=== PATIENT | female | born 1990 | race African-American/Black ===

== ENCOUNTER 2016-10-26 08:42 | Emergency (ER) | payer MEDICAID ==
[~2016-10-26] VITALS: Ht 160 cm; Wt 65.0 kg
[~2016-10-26 08:42] MED LIST: IBUP-232 PO; LABE300T PO; MACR100C PO; METO10TA PO; PREN0.01 PO
[2016-10-26 08:44] VITALS: BP 124/80; PULSE 112; RESP 16; TEMP 97.6; O2SAT 100
[2016-10-26 09:35] LABS: BACTERIA, URINE RARE /hpf; BLOOD, URINE NEG (NEG); COMMENT (UR) CULTURE INDICATED; CULTURE IF INDICATED CULTURE INDICATED; GLUCOSE,URINE NEG (NEG); KETONE, URINE NEG (NEG); MUCUS URINE FEW /lpf (OCC); NITRITE,URINE NEG (NEG); PH, URINE 5.5 (5.0-8.5); SQUAMOUS EPITHELIAL CELL URINE 6 /hpf (0-5); URINE COLOR YELLOW (YELLW/STRAW)
[2016-10-26 10:17] LABS: BETA HCG QUANT 36 MIU/ML (0-5)
[2016-10-26] MEDS ORDERED: MACR100C2 PO (10:46)
--- NOTE | 2016-10-26 10:47 | PD ---
HPI Chief Complaint: Related Problem Time Seen by Provider: 09:09 Travel History International Travel<30 days: No Contact w/Intl Traveler<30days: No Traveled to known affect area: No History of Present Illness HPI Patient is a 25-year-old at approximately 6 weeks' gestational the age based on LMP of 09/14/16 here with complaint of abdominal pain. Patient states that she believes she is though has not taken any home tests. She has had some pelvic pressure, pain and a scant amount of bloody/ pink tinged vaginal discharge. No bleeding, nothing having a poor she's had to use a pad or tampon. PFSH Past Medical History Asthma: Yes Developmental Delay: No Diminished Hearing: No Immunizations Current: Yes ?: LMP: august 2016 : 2 Para: 3 Past Surgical History Surgical History: No Previous Surgery Social History Alcohol Use: No Tobacco Use: Yes (1 cigarette a day ) Substance Use: No Allergies-Medications (Allergen,Severity, Reaction): Coded Allergies: No Known Allergies (Unverified , 10/26/16) Reported Meds & Prescriptions Reported Meds & Active Scripts Active Zofran Odt (Ondansetron Odt) 4 Mg Tab 4 Mg SL Q6HR PRN Macrobid (Nitrofurantoin Monohydrate Macrocrystals) 100 Mg Capsule 100 Mg PO BID 7 Days Labetalol (Labetalol HCl) 300 Mg Tab 300 Mg PO BID Ibuprofen 600 Mg Tab 600 Mg PO Q6H PRN Review of Systems Except as stated in HPI: all other systems reviewed are Neg Physical Exam Narrative GENERAL well-appearing female in no acute distress SKIN: Focused skin assessment warm/dry. HEAD: Normocephalic. EYES: No scleral icterus. No injection or drainage. ENT: Mucous membranes pink and moist. NECK: Supple CARDIOVASCULAR: Regular rate and rhythm. RESPIRATORY: No accessory muscle use. GASTROINTESTINAL: Abdomen soft, non-tender, nondistended. MUSCULOSKELETAL: Normal gait NEUROLOGICAL: Awake and alert. Normal speech. PSYCHIATRIC: Appropriate mood and affect; insight and judgment normal. Data Data Last Documented VS Vital Signs Date Time Temp Pulse Resp B/P Pulse Ox O2 Delivery O2 Flow Rate FiO2 10/26/16 08:44 97.6 112 16 124/80 100 Room Air Orders Ed Urine Pregnancytest Poc (10/26/16 08:56) Urinalysis - C+S If Indicated (10/26/16 08:56) Ed Poc Ultrasound (10/26/16 ) Beta Hcg (Quant/Titer) (10/26/16 09:18) Urine Culture (10/26/16 09:01) Ondansetron Odt (Zofran Odt) (10/26/16 11:00) Us Pelvis (Ques Pr/Ect)W Trans (10/26/16 ) Labs Laboratory Tests Test 10/26/16 10/26/16 09:01 09:25 Urine Color YELLOW Urine Turbidity HAZY Urine pH 5.5 Urine Specific [place] 1.016 Urine Protein NEG mg/dL Urine Glucose (UA) NEG mg/dL Urine Ketones NEG mg/dL Urine Occult Blood NEG Urine Nitrite NEG Urine Bilirubin NEG Urine Urobilinogen LESS THAN 2.0 MG/DL Urine Leukocyte Esterase LARGE Urine RBC 7 /hpf Urine WBC 40 /hpf Urine Squamous Epithelial 6 /hpf Cells Urine Bacteria RARE /hpf Urine Mucus FEW /lpf Microscopic Urinalysis Comment CULTURE INDICATED Human Chorionic Gonadotropin, 36 MIU/ML Quant MDM Medical Decision Making Medical Screen Exam Complete: Yes Emergency Medical Condition: Yes Medical Record Reviewed: Yes Differential Diagnosis 25-year-old at approximately 6 weeks' gestational age based on LMP here with complaint of pelvic pressure and bloody tinged spotting when wiping on toilet paper. Differential includes , ectopic , threatened AB , missed AB, and appropriate, UTI. Narrative Course And test was positive. Urinalysis notable for possible UTI. Bedside ultrasound unable to identify IUP. Beta Quant 36. Patient is O+. Formal transvaginal ultrasound showed abnormal uterus, early versus retained products. Will have patient follow-up in 48 hours for repeat beta Quant. Procedures Procedure Narrative Emergency Department Pelvic ultrasound was performed with patient consent. 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 Follow-up with HELPER COORDINATOR in 48 hours for repeat beta Quant. Med/Other Pt SpecificInfo: Prescription(s) given Scripts Ondansetron Odt (Zofran Odt)4 Mg Tab4 Mg SL Q6HR PRN (Nausea/Vomiting) #10 TAB Ref 0 Prov:Kathleen Mayer MD 10/26/16 Nitrofurantoin Monohydrate Macrocrystals (Macrobid)100 Mg [id number] Mg PO BID 7 Days Ref 0 Prov:Kathleen Mayer MD 10/26/16 Disposition: 01 DISCHARGE HOME Condition: Stable Kathleen Mayer MD Oct 26, 2016 10:47
[2016-10-26] MEDS ORDERED: ZOFR4TAB3 SL (10:56)
[2016-10-26] MEDS ORDERED: ONDANSETRON ODT 4 MG TAB PO ONE (11:00)
--- NOTE | 2016-10-26 11:35 | RADRPT ---
EXAM DATE/TIME: 10/26/2016 10:20 [facility] COMPARISON: No previous studies available for comparison. INDICATIONS : Pelvic pain. LAB(S): Beta-hC MEDICAL HISTORY : . Asthma. Tobacco use. SURGICAL HISTORY : None. ENCOUNTER: Subsequent ACUITY: 1 week PAIN SCORE: 7/10 LOCATION: Bilateral pelvis MEASUREMENTS: UTERUS: 10.6 x 6.0 x 5.2 cm ENDOMETRIAL STRIPE: 14 mm RIGHT OVARY: 3.0 x 2.7 x 1.8 cm LEFT OVARY: 2.1 x 1.6 x 1.7 cm FREE FLUID: Yes posterior cul de sac CROWN RUMP LENGTH: Nonvisualized = WKS DAYS FHR: Nonvisualized BPM FINDINGS: UTERUS: Very small anechoic structure within the uterus. This could be very early gestation or retained prod ucts. RIGHT OVARY: Ovary contains no mass or significant cystic lesion. LEFT OVARY: Ovary contains no mass or significant cystic lesion. MISCELLANEOUS: Trace free fluid is present. CONCLUSION: Abnormal uterus as described above. Considerations include very early , unusual with beta o f 36 and retained products in the appropriate clinical situation. Dino Peña MD FACR on October 26, 2016 at 11:27 Board Certified Radiologist. This report was verified electronically.
== END 2016-10-26 12:07 | disposition home or self-care (01) ==
LOC: NEPD 08:42
DX: O20.0 Threatened abortion (principal); O23.41 Unspecified infection of urinary tract in pregnancy, first trimester; J45.909 Unspecified asthma, uncomplicated
CPT/HCPCS: 76700; 76817; 81001; 84702; 84703; 87086; 99285

== ENCOUNTER 2016-10-28 13:08 | Emergency (ER) | payer MEDICAID ==
[~2016-10-28] VITALS: Ht 160 cm; Wt 63.5 kg
[~2016-10-28 13:08] MED LIST changes: -MACR100C PO; +MACR100C2 PO; -METO10TA PO; -PREN0.01 PO; +ZOFR4TAB3 SL
[2016-10-28 14:24] LABS: BETA HCG QUANT 127 MIU/ML (0-5)
--- NOTE | 2016-10-28 14:30 | PD ---
HPI Chief Complaint: Related Problem Time Seen by Provider: 13:33 Travel History International Travel<30 days: No Contact w/Intl Traveler<30days: No Traveled to known affect area: No History of Present Illness HPI 25-year-old female is here for recheck. Patient was seen in emergency room 2 days ago with pelvic cramping and vaginal spotting. Beta hCG was 36. Pelvic ultrasound showed possible early versus retained products. Patient was advised to return in 2 days for recheck. Patient states that she has mild occasionally pelvic cramping. Patient states that she has not noted any spotting vaginally. Patient denies any fever chills. Patient's blood type O+. PFSH Past Medical History Asthma: Yes Developmental Delay: No Diminished Hearing: No Immunizations Current: Yes ?: LMP: 08/2016 : 2 Para: 3 Social History Alcohol Use: No Tobacco Use: Yes (1 cigarette a day ) Substance Use: No Allergies-Medications (Allergen,Severity, Reaction): Coded Allergies: No Known Allergies (Unverified , 10/28/16) Reported Meds & Prescriptions Reported Meds & Active Scripts Active Zofran Odt (Ondansetron Odt) 4 Mg Tab 4 Mg SL Q6HR PRN Macrobid (Nitrofurantoin Monohydrate Macrocrystals) 100 Mg Capsule 100 Mg PO BID 7 Days Labetalol (Labetalol HCl) 300 Mg Tab 300 Mg PO BID Ibuprofen 600 Mg Tab 600 Mg PO Q6H PRN Review of Systems General / Constitutional: No: Fever Eyes: No: Visual changes HENT: No: Headaches Cardiovascular: No: Chest Pain or Discomfort Respiratory: No: Shortness of Breath Gastrointestinal: No: Abdominal Pain Genitourinary: Positive: Pelvic Pain, No: Dysuria Musculoskeletal: No: Pain Skin: No Rash Neurologic: No: Weakness Psychiatric: No: Depression Endocrine: No: Polydipsia Hematologic/Lymphatic: No: Easy Bruising Physical Exam Narrative GENERAL: Well-nourished, well-developed patient. SKIN: Focused skin assessment warm/dry. HEAD: Normocephalic. EYES: No scleral icterus. No injection or drainage. NECK: Supple, trachea midline. No JVD or lymphadenopathy. CARDIOVASCULAR: Regular rate and rhythm without murmurs, gallops, or rubs. RESPIRATORY: Breath sounds equal bilaterally. No accessory muscle use. GASTROINTESTINAL: Abdomen soft, non-tender, nondistended. MUSCULOSKELETAL: No cyanosis, or edema. BACK: Nontender without obvious deformity. No CVA tenderness. Data Data Orders Beta Hcg (Quant/Titer) (10/28/16 13:39) Labs Laboratory Tests Test 10/28/16 13:50 Human Chorionic Gonadotropin, 127 MIU/ML Quant MDM Medical Decision Making Medical Screen Exam Complete: Yes Emergency Medical Condition: Yes Interpretation(s) 1430 p.m. Beta-hCG 127. Differential Diagnosis Differential diagnosis including right knee B, incomplete AB, completed AB, ectopic . Narrative Course The 25-year-old female returning to ED for repeat beta hCG titer. Diagnosis Primary Impression: Vaginal bleeding during , antepartum Patient Instructions: General Instructions Additional Instructions: vitamins as directed. Bedrest. Encourage by mouth fluid. Follow-up with local OB. Return immediately if increased pain vaginal bleeding. Disposition: 01 DISCHARGE HOME Condition: Stable Zak Phan MD Oct 28, 2016 14:30
== END 2016-10-28 14:38 | disposition home or self-care (01) ==
LOC: NEPD 13:08
DX: O46.90 Antepartum hemorrhage, unspecified, unspecified trimester (principal); Z3A.00 Weeks of gestation of pregnancy not specified
CPT/HCPCS: 84702; 99283

== ENCOUNTER 2016-11-25 13:44 | Emergency (ER) | payer MEDICAID ==
[~2016-11-25] VITALS: Ht 160 cm; Wt 63.0 kg
[2016-11-25 13:45] VITALS: BP 106/67; PULSE 102; RESP 16; TEMP 98.8; O2SAT 98
--- NOTE | 2016-11-25 13:50 | PD ---
Physical Exam Time Seen by Provider: 13:49 Narrative 25 y/o female here for evaluation of nausea, hematemesis. She is reports that she is but unsure of the dating. Vital signs reviewed. Seen at triage desk. Awaiting bed placement. Data Data Last Documented VS Vital Signs Date Time Temp Pulse Resp B/P Pulse Ox O2 Delivery O2 Flow Rate FiO2 11/25/16 13:45 98.8 102 16 106/67 98 Room Air [facility] Medical Record Reviewed: Yes Supervised Visit with CODI: No Nathanael Conner Nov 25, 2016 13:50
[2016-11-25] MEDS ORDERED: SODIUM CHLOR 0.9% 1000 ML INJ 1,000 ML IV ONE (16:11)
--- NOTE | 2016-11-25 16:11 | PD ---
HPI Chief Complaint: Related Problem Time Seen by Provider: 16:11 Travel History International Travel<30 days: No Contact w/Intl Traveler<30days: No Traveled to known affect area: No History of Present Illness HPI 25-year-old female, stating she is approximately 2 months , presents to the emergency department with complaint of nausea, vomiting, dizziness 2 months. Last menstrual period was sometime in August. This is her fourth . Reports worsening of vomiting and says she is vomiting every day all day and cannot verify when this started. Says when she eats she immediately vomits. Reports bright red streaks in her vomit. Reports subjective fevers. Denies vaginal bleeding, discharge, odor, itch, lesions. Denies dysuria. Reports urinary frequency. Reports shortness of breath and chest pain that started yesterday. It is constant and worse with coughing and movement. Reports constipation times one week. 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 Has primary care through [facility]. [facility] Past Medical History Asthma: Yes Cardiovascular Problems: Yes (htn) Developmental Delay: No Diminished Hearing: No Respiratory: Yes (asthma) Immunizations Current: Yes ?: : 2 Para: 3 Social History Alcohol Use: No Tobacco Use: Yes (1 cigarette a day ) Substance Use: No Allergies-Medications (Allergen,Severity, Reaction): Coded Allergies: No Known Allergies (Unverified , 11/25/16) Reported Meds & Prescriptions Reported Meds & Active Scripts Active Reported [ vitamin] DAILY Review of Systems Except as stated in HPI: all other systems reviewed are Neg Physical Exam Narrative GENERAL: Well-nourished, well-developed female patient, in no acute distress SKIN: Warm and dry. HEAD: Atraumatic. Normocephalic. EYES: Pupils equal and round. No scleral icterus. No injection or drainage. ENT: Mucosa pink and moist. Airway patent. NECK: Trachea midline. CARDIOVASCULAR: Regular rate and rhythm. No murmur appreciated. RESPIRATORY: No accessory muscle use. Breath sounds clear and equal bilaterally. No retractions or tachypnea. GASTROINTESTINAL: Abdomen soft, tenderness to right upper quadrant, nondistended. Bowel sounds active 4 quadrants. Nondistended. MUSCULOSKELETAL: No obvious deformities. No clubbing. No cyanosis. No edema. NEUROLOGICAL: Awake and alert. Oriented 3. No obvious cranial nerve deficits. Motor grossly within normal limits. Normal speech. PSYCHIATRIC: Appropriate mood and affect; insight and judgment normal. Data Data Last Documented VS Vital Signs Date Time Temp Pulse Resp B/P Pulse Ox O2 Delivery O2 Flow Rate FiO2 11/25/16 13:45 98.8 102 16 106/67 98 Room Air Orders Beta Hcg (Quant/Titer) (11/25/16 16:11) Complete Blood Count With Diff (11/25/16 16:11) Comprehensive Metabolic Panel (11/25/16 16:11) Urinalysis - C+S If Indicated (11/25/16 16:11) Iv Access Insert/Monitor (11/25/16 16:11) Sodium Chloride 0.9% Flush (Ns Flush) (11/25/16 16:15) Sodium Chlor 0.9% 1000 Ml Inj (Ns 1000 M (11/25/16 16:11) Chest, Single Ap (11/25/16 16:11) Metoclopramide Inj (Reglan Inj) (11/25/16 16:30) Us Abdomen Gallbladder (11/25/16 ) Urine Culture (11/25/16 16:40) Ed Poc Ultrasound (11/25/16 ) Labs Laboratory Tests Test 11/25/16 16:40 White Blood Count 4.5 TH/MM3 Red Blood Count 6.15 MIL/MM3 Hemoglobin 11.4 GM/DL Hematocrit 39.3 % Mean Corpuscular Volume 63.9 FL Mean Corpuscular Hemoglobin 18.6 PG Mean Corpuscular Hemoglobin 29.1 % Concent Red Cell Distribution Width 22.7 % Platelet Count 194 TH/MM3 Mean Platelet Volume 9.4 FL Neutrophils (%) (Auto) 55.5 % Lymphocytes (%) (Auto) 34.1 % Monocytes (%) (Auto) 8.4 % Eosinophils (%) (Auto) 1.1 % Basophils (%) (Auto) 0.9 % Neutrophils # (Auto) 2.5 TH/MM3 Lymphocytes # (Auto) 1.5 TH/MM3 Monocytes # (Auto) 0.4 TH/MM3 Eosinophils # (Auto) 0.1 TH/MM3 Basophils # (Auto) 0.0 TH/MM3 CBC Comment DIFF FINAL Differential Comment Urine Color YELLOW Urine Turbidity HAZY Urine pH 6.0 Urine Specific [place] 1.036 Urine Protein 30 mg/dL Urine Glucose (UA) NEG mg/dL Urine Ketones NEG mg/dL Urine Occult Blood NEG Urine Nitrite NEG Urine Bilirubin NEG Urine Urobilinogen 4.0 MG/DL Urine Leukocyte Esterase MOD Urine RBC 6 /hpf Urine WBC 16 /hpf Urine Squamous Epithelial 14 /hpf Cells Urine Bacteria OCC /hpf Urine Mucus MANY /lpf Microscopic Urinalysis Comment CULTURE INDICATED Sodium Level 136 MEQ/L Potassium Level 3.7 MEQ/L Chloride Level 102 MEQ/L Carbon Dioxide Level 22.7 MEQ/L Anion Gap 11 MEQ/L Blood Urea Nitrogen 8 MG/DL Creatinine 0.75 MG/DL Estimat Glomerular Filtration 116 ML/MIN Rate Random Glucose 76 MG/DL Calcium Level 9.6 MG/DL Total Bilirubin 0.3 MG/DL Aspartate Amino Transf 14 U/L (AST/SGOT) Alanine Aminotransferase 13 U/L (ALT/SGPT) Alkaline Phosphatase 31 U/L Total Protein 8.9 GM/DL Albumin 3.8 GM/DL Human Chorionic Gonadotropin, [id number] MIU/ML Quant MDM Medical Decision Making Medical Screen Exam Complete: Yes Emergency Medical Condition: Yes Medical Record Reviewed: Yes Differential Diagnosis Hyperemesis gravidarum, cholecystitis, cholelithiasis, constipation, urinary tract infection Narrative Course 25-year-old female approximately 2 months with right upper quadrant abdominal pain, vomiting and constipation. IV site obtained. CBC, CMP, lipase , urinalysis, normal saline bolus, Phenergan, chest x-ray, right upper quadrant ultrasound ordered. 1720: Chest x-ray unremarkable. 1899: Report given to Dr. Ibanez, my attending physician, change of shift. See her note for patient disposition. Noemy Rubio DIRECTOR OF APPLICATION DEVELOPMENT Nov 25, 2016 16:11
[2016-11-25 16:14] LABS: MEAN CORPUSCULAR HGB CONC 29.1 % (32.0-36.0)
[2016-11-25] MEDS ORDERED: SODIUM CHLORIDE 0.9% FLUSH 10 ML FLUSH IVF PRN (16:15)
[2016-11-25] MEDS ORDERED: prenatal vitamin (16:23)
[2016-11-25] MEDS ORDERED: METOCLOPRAMIDE HCL 10 MG/2 ML VIAL IV PUSH ONE (16:30)
--- NOTE | 2016-11-25 17:13 | RADRPT ---
EXAM DATE/TIME: 11/25/2016 16:25 [facility] COMPARISON: CHEST SINGLE AP, November 23, 2015, 3:15. INDICATIONS : Short of breath MEDICAL HISTORY : None. SURGICAL HISTORY : None. ENCOUNTER: Initial ACUITY: 2 weeks PAIN SCORE: 0/10 LOCATION: Bilateral chest FINDINGS: The lungs are clear without infiltrate, nodule, or mass. There is no appreciable pleural effusion fo r technique. Heart and mediastinum are unremarkable. There are punctate artifacts on the radiograph. CONCLUSION: No acute cardiopulmonary disease. Gianna Finley MD on November 25, 2016 at 17:11 Board Certified Radiologist. This report was verified electronically.
[2016-11-25 17:56] LABS: BACTERIA, URINE OCC /hpf; BLOOD, URINE NEG (NEG); COMMENT (UR) CULTURE INDICATED; CULTURE IF INDICATED CULTURE INDICATED; GLUCOSE,URINE NEG (NEG); KETONE, URINE NEG (NEG); MUCUS URINE MANY /lpf (OCC); NITRITE,URINE NEG (NEG); SQUAMOUS EPITHELIAL CELL URINE 14 /hpf (0-5); URINE COLOR YELLOW (YELLW/STRAW)
[2016-11-25 17:59] LABS: AUTOMATED NEUTROPHIL # 2.5 TH/MM3 (1.8-7.7); BASOPHIL % 0.9 % (0.0-2.0); EOSINOPHIL # 0.1 TH/MM3 (0-0.4); EOSINOPHIL % 1.1 % (0.0-4.0); HEMATOCRIT 39.3 % (35.0-46.0); HEMO FLAGS DIFF FINAL; LYMPH % 34.1 % (9.0-44.0); LYMPHOCYTE # 1.5 TH/MM3 (1.0-4.8); MEAN CELL VOLUME 63.9 FL (80.0-100.0); MEAN CORPUSCULAR HEMOGLOBIN 18.6 PG (27.0-34.0); MONO % 8.4 % (0.0-8.0); NEUT % 55.5 % (16.0-70.0); PLATELET COUNT 194 TH/MM3 (150-450); RED BLOOD COUNT 6.15 MIL/MM3 (4.00-5.30); RED CELL DISTRIBUTION WIDTH 22.7 % (11.6-17.2); WHITE BLOOD COUNT 4.5 TH/MM3 (4.0-11.0)
[2016-11-25 18:10] LABS: ANION GAP 11 MEQ/L (5-15); AST (GOT) 14 U/L (15-37); BICARBONATE 22.7 MEQ/L (21.0-32.0); BLOOD UREA NITROGEN 8 MG/DL (7-18); CHLORIDE 102 MEQ/L (98-107); GLOMERULAR FILTRATION RATE 116 ML/MIN (>89); POTASSIUM 3.7 MEQ/L (3.5-5.1); SODIUM (NA) 136 MEQ/L (136-145)
[2016-11-25 18:27] LABS: ALKALINE PHOSPHATASE 31 U/L (45-117); ALT (GPT) 13 U/L (10-53); BETA HCG QUANT 113771 MIU/ML (0-5); TOTAL BILIRUBIN ADULT 0.3 MG/DL (0.2-1.0)
--- NOTE | 2016-11-25 18:29 | RADRPT ---
EXAM DATE/TIME: 11/25/2016 17:17 [facility] COMPARISON: No previous studies available for comparison. INDICATIONS : Right upper quadrant pain. MEDICAL HISTORY : Hypertension. Asthma. Tobacco use. SURGICAL HISTORY : None. ENCOUNTER: Initial ACUITY: 4-6 days PAIN SCORE: 8/10 LOCATION: Right upper quadrant MEASUREMENTS: LIVER: 13.2 cm length COMMON DUCT: 3 mm RIGHT KIDNEY: 9.8 x 5.2 x 4.2 cm FINDINGS: LIVER: Normal echotexture without focal lesion or ductal dilatation. COMMON DUCT: No intraluminal mass or stone visualized. GALLBLADDER: Contains no stones, demonstrates no wall thickening or pericholecystic fluid. PANCREAS: The visualized portions are within normal limits. RIGHT KIDNEY: No evidence of hydronephrosis, stone, or mass. CONCLUSION: Gallbladder is mildly prominent without stone or tenderness.. Dino Peña MD FACR on November 25, 2016 at 18:26 Board Certified Radiologist. This report was verified electronically.
[2016-11-25] MEDS ORDERED: NITR100C4 PO (19:25)
--- NOTE | 2016-11-25 19:25 | PD ---
Physical Exam Narrative Signed out from previous provider to follow up US gallbladder and reevaluate pt. 25yo F who is about 2 months with RUQ abdominal pain. Labs reviewed, no leukocytosis. CG [id number]. No elevation of bilirubin or LFTs. UA shoed moderate leukocyte. WBC 16. Will treat with nitrofurantoin. US gallbladder showed gallbladder is mildly prominent without stone or tenderness. Pt reevaluated at bedside and is hungry. Abdomen is soft, NT/ND. Bedside US showed IUP. +FHR. Pt does not have OBGYN, will refer her to our OBGYN. Pt tolerating PO. Return precautions given. Data Data Last Documented VS Vital Signs Date Time Temp Pulse Resp B/P Pulse Ox O2 Delivery O2 Flow Rate FiO2 11/25/16 13:45 98.8 102 16 106/67 98 Room Air Orders Beta Hcg (Quant/Titer) (11/25/16 16:11) Complete Blood Count With Diff (11/25/16 16:11) Comprehensive Metabolic Panel (11/25/16 16:11) Urinalysis - C+S If Indicated (11/25/16 16:11) Iv Access Insert/Monitor (11/25/16 16:11) Sodium Chloride 0.9% Flush (Ns Flush) (11/25/16 16:15) Sodium Chlor 0.9% 1000 Ml Inj (Ns 1000 M (11/25/16 16:11) Chest, Single Ap (11/25/16 16:11) Metoclopramide Inj (Reglan Inj) (11/25/16 16:30) Us Abdomen Gallbladder (11/25/16 ) Urine Culture (11/25/16 16:40) Ed Poc Ultrasound (11/25/16 ) Labs Laboratory Tests Test 11/25/16 16:40 White Blood Count 4.5 TH/MM3 Red Blood Count 6.15 MIL/MM3 Hemoglobin 11.4 GM/DL Hematocrit 39.3 % Mean Corpuscular Volume 63.9 FL Mean Corpuscular Hemoglobin 18.6 PG Mean Corpuscular Hemoglobin 29.1 % Concent Red Cell Distribution Width 22.7 % Platelet Count 194 TH/MM3 Mean Platelet Volume 9.4 FL Neutrophils (%) (Auto) 55.5 % Lymphocytes (%) (Auto) 34.1 % Monocytes (%) (Auto) 8.4 % Eosinophils (%) (Auto) 1.1 % Basophils (%) (Auto) 0.9 % Neutrophils # (Auto) 2.5 TH/MM3 Lymphocytes # (Auto) 1.5 TH/MM3 Monocytes # (Auto) 0.4 TH/MM3 Eosinophils # (Auto) 0.1 TH/MM3 Basophils # (Auto) 0.0 TH/MM3 CBC Comment DIFF FINAL Differential Comment Urine Color YELLOW Urine Turbidity HAZY Urine pH 6.0 Urine Specific [place] 1.036 Urine Protein 30 mg/dL Urine Glucose (UA) NEG mg/dL Urine Ketones NEG mg/dL Urine Occult Blood NEG Urine Nitrite NEG Urine Bilirubin NEG Urine Urobilinogen 4.0 MG/DL Urine Leukocyte Esterase MOD Urine RBC 6 /hpf Urine WBC 16 /hpf Urine Squamous Epithelial 14 /hpf Cells Urine Bacteria OCC /hpf Urine Mucus MANY /lpf Microscopic Urinalysis Comment CULTURE INDICATED Sodium Level 136 MEQ/L Potassium Level 3.7 MEQ/L Chloride Level 102 MEQ/L Carbon Dioxide Level 22.7 MEQ/L Anion Gap 11 MEQ/L Blood Urea Nitrogen 8 MG/DL Creatinine 0.75 MG/DL Estimat Glomerular Filtration 116 ML/MIN Rate Random Glucose 76 MG/DL Calcium Level 9.6 MG/DL Total Bilirubin 0.3 MG/DL Aspartate Amino Transf 14 U/L (AST/SGOT) Alanine Aminotransferase 13 U/L (ALT/SGPT) Alkaline Phosphatase 31 U/L Total Protein 8.9 GM/DL Albumin 3.8 GM/DL Human Chorionic Gonadotropin, [id number] MIU/ML Quant MDM Supervised Visit with CODI: Yes Procedures Procedure Narrative Emergency Department Pelvic ultrasound was performed with patient consent. The curvilinear probe was used in the transverse and sagittal views within the suprapubic region revealing single intrauterine . heart rate was 158bpm. Diagnosis Primary Impression: UTI in Qualified Code: O23.40 - UTI in , unspecified trimester Referrals: Antonio Fonseca MD call for appointment and needs OBGYN Patient Instructions: General Instructions Departure Forms: Tests/Procedures Additional Instruction: Please follow up with OBGYN at the earliest appointment. Return to the ED if symptoms worsen. Med/Other Pt SpecificInfo: Prescription(s) given Scripts Nitrofurantoin Monohydrate Macrocrystals 100 Mg [id number] Mg PO BID 7 Days Ref 0 Prov:Brynn Ibanez DO 11/25/16 Disposition: 01 DISCHARGE HOME Condition: Stable Brynn Ibanez DO Nov 25, 2016 19:25
[2016-11-25] MEDS ORDERED: ONDANSETRON HCL 4 MG/2 ML VIAL IV PUSH ONE (20:15)
[2016-11-25 20:51] VITALS: BP 123/66
== END 2016-11-25 20:56 | disposition home or self-care (01) ==
LOC: NEPD 13:44
DX: O23.41 Unspecified infection of urinary tract in pregnancy, first trimester (principal); O21.9 Vomiting of pregnancy, unspecified; J45.909 Unspecified asthma, uncomplicated; O16.1 Unspecified maternal hypertension, first trimester; O99.331 Smoking (tobacco) complicating pregnancy, first trimester
CPT/HCPCS: 71010; 76705; 80053; 81001; 84702; 85025; 87086; 96361; 96374; 96375; 99285; J2405; J2765; J7030

== ENCOUNTER 2017-06-03 13:28 | Emergency (ER) | payer MEDICAID ==
[~2017-06-03] VITALS: Ht 160 cm; Wt 59.0 kg
[~2017-06-03 13:28] MED LIST changes: -IBUP-232 PO; -LABE300T PO; -MACR100C2 PO; +NITR100C4 PO; -ZOFR4TAB3 SL; +prenatal vitamin
--- NOTE | 2017-06-03 17:12 | PD ---
HPI Chief Complaint Vomiting blood, contractions Date Seen: Jun 03, 2017 Time Seen: 17:00 Travel History International Travel<30 Days: No Contact w/Intl Traveler<30Days: No Known Affected Area: No History of Present Illness HPI Patient is a 26 year old at 37 weeks and 4 days who presents to OB triage complaining of nausea and bloody vomit since this morning as well as abdominal pain/contractions. Patient has received limited care at [facility]' s office. She reports nausea/vomiting, spitting as well as heartburn all day everyday throughout her . This morning she noticed dark blood in her vomitus. She reports "pull-upward" pain over her abdomen; pain became regular today, q4min. She also reports "fluid leakage" x2 weeks. She denies vaginal bleeding. She endorses positive movement. She denies diarrhea. She reports constipation. Her last bowel movement was 2 days ago. Weeks Gestation: 37 Para: 3 : 4 History Past Medical History Narrative Medical Asthma Obstetric History Obstetric History G1 - vaginal delivery, full-term G2 - vaginal delivery, full-term G3 - vaginal delivery, pre-term, approximately 36 weeks; elevated BP and placed on Mg following delivery G4 - current , limited care, no complications per patient Past Surgical History Surgical History: No Previous Surgery Family History Family History: Negative Social History Alcohol Use: No Tobacco Use: No Substance Abuse: Yes (Marijuana ) Allergies-Medications (Allergen,Severity, Reaction): Coded Allergies: No Known Allergies (Unverified , 11/25/16) Review of Systems Except as stated in HPI: all other systems reviewed are Neg Physical Exam Narrative GENERAL: Well-nourished, well-developed patient. SKIN: Warm and dry. HEAD: Normocephalic and atraumatic. EYES: No scleral icterus. No injection or drainage. ENT: No nasal drainage noted. Mucous membranes pink. Airway patent. NECK: Supple, trachea midline. No JVD. CARDIOVASCULAR: Regular rate and rhythm without murmurs, gallops, or rubs. RESPIRATORY: Breath sounds equal bilaterally. No accessory muscle use. ABDOMEN/GI: Abdomen soft, non-tender, bowel sounds present, no rebound, no guarding Gravid to 37 weeks size GENITOURINARY per Dr. Phan: External Genitalia: intact and normal in appearance Dilatation: 1 cm Effacement: 50% Station: High Uterine Contractions: Irregular FHT's: Category: 1 Baseline: 140 Reactive: Reactive Variability: Moderate Decels: None EXTREMITIES: No cyanosis or edema. BACK: Nontender without obvious deformity. No CVA tenderness. NEUROLOGICAL: Awake and alert. Motor and sensory grossly within normal limits. Five out of 5 muscle strength in all muscle groups. Normal speech. Data Data Vital Signs Reviewed: Yes Orders Orders Urinalysis - C+S If Indicated (06/03/17 17:00) MDM Plan Patient is a 26 year old at 37 weeks and 4 days who presents to OB triage complaining of nausea and bloody vomit since this morning as well as abdominal pain/contractions. Patient has received limited care at [facility] s office. * IUP- Category I tracing, reassuring. * Requested labs - pending. * May consider ordering labs including collection of GBS swab. * UA with culture - pending. * IV hydration. Patient discussed with OB hospitalist. Diagnosis Diagnosis: Primary Impression: Nausea & vomiting Additional Impression: Abdominal pain affecting Disposition: DISCHARGE HOME Condition: Stable Marika Whitman MD R1 Jun 03, 2017 17:12
[2017-06-03] MEDS ORDERED: LACTATED RINGER'S 1000 ML INJ 1,000 ML IV ONE (18:15)
[2017-06-03 18:22] LABS: BACTERIA, URINE MOD /hpf; BLOOD, URINE NEG (NEG); GLUCOSE,URINE NEG (NEG); KETONE, URINE 40 mg/dL (NEG); MUCUS URINE MANY /lpf (OCC); NITRITE,URINE NEG (NEG); SQUAMOUS EPITHELIAL CELL URINE 18 /hpf (0-5); TRANSITIONAL EPI CELLS, URINE 1 /hpf; URINE COLOR DARK-YELLOW (YELLW/STRAW); URINE LEUKOCYTE ESTERASE LARGE (NEG)
[2017-06-03 18:27] LABS: BILIRUBIN, URINE NEG (NEG)
== END 2017-06-03 19:02 | disposition left against medical advice (07) ==
LOC: HOBED 13:28
DX: O26.893 Other specified pregnancy related conditions, third trimester (principal); R10.9 Unspecified abdominal pain; O21.2 Late vomiting of pregnancy; O99.613 Diseases of the digestive system complicating pregnancy, third trimester; K59.00 Constipation, unspecified; Z3A.37 37 weeks gestation of pregnancy
CPT/HCPCS: 81001; 87086; 99283

== ENCOUNTER → 2017-06-24 | Emergency (ER) | payer MEDICAID ==
[~2017-06-24] MED LIST changes: +IBUP1TAB7 PO; -NITR100C4 PO; +PERI PO; +TRICTAB PO; -prenatal vitamin
--- NOTE | 2017-06-24 16:25 | PD ---
HPI Chief Complaint contractions Date Seen: Jun 24, 2017 Time Seen: 16:18 Travel History International Travel<30 Days: No Contact w/Intl Traveler<30Days: No History of Present Illness HPI 26 y/o at 40/4 weeks presents with contractions. She states that the contractions started early this morning and states they were occurring every 2 minutes or so and states they are painful. Denies any vaginal bleeding or leakage of fluids. Endorses movement. She sees [facility] for her care. Denies any issues during this . Denies any headaches, blurry vision, dysuria, leg swelling/pain. 3 previous vaginal deliveries, first two were at term and the last one was delivered early due to hypertension. Based on paperwork, her initial DORIAN was 08/14 from LMP. Pt states she had ultrasound performed at [facility], with a new DORAIN of 06/20. Weeks Gestation: 40 Para: 3 : 4 History Past Medical History Medical History: Denies Significant Hx Obstetric History Obstetric History SVDx3 -last one due to elevated blood pressures Past Surgical History Surgical History: No Previous Surgery Family History Family History: Negative Social History Alcohol Use: No Tobacco Use: No Substance Abuse: Yes (marijuana) Allergies-Medications (Allergen,Severity, Reaction): Coded Allergies: No Known Allergies (Unverified , 11/25/16) Review of Systems General / Constitutional: Weight Gain, No: Fever, Weight Loss, Chills, Other Eyes: No: Diploplia, Blurred Vision, Visual changes, Pain, Photophobia HENT: No: Headaches, Vertigo, Lightheadedness Cardiovascular: No: Irregular Rhythm, Chest Pain or Discomfort, Palpitations, Tachycardia, Syncope, Varicosities, Edema, Cyanosis Respiratory: No: Cough, Short of Breath, Other Gastrointestinal: No: Nausea, Vomiting, Diarrhea Genitourinary: No: Urgency, Frequency, Dysuria, Decreased Urinary Output, Oliguria, Hesitancy, Pelvic Pain, Discharge, Vaginal Bleeding Musculoskeletal: No: Limited ROM, Weakness, Cramping, Edema, Pain Skin: No Rash, No Itching, No Dryness, No Lumps, No Change in Pigmentation, No Change in Nails, No Alopecia, No Lesions Neurologic: No: Weakness, Dizziness, Syncope, Focal Abnormalities, Coordination Problem, Headache, Slurred Speech, Seizures Psychiatric: No: Depression, Suicidal Ideations, Homicidal Ideation Endocrine: No: Heat Intolerance, Cold Intolerance, Polydipsia, Polyuria, Other Physical Exam Narrative GENERAL: Well-nourished, well-developed patient. SKIN: Warm and dry. HEAD: Normocephalic and atraumatic. EYES: No scleral icterus. No injection or drainage. ENT: No nasal drainage noted. Mucous membranes pink. Airway patent. NECK: Supple, trachea midline. No JVD. CARDIOVASCULAR: Regular rate and rhythm without murmurs, gallops, or rubs. RESPIRATORY: Breath sounds equal bilaterally. No accessory muscle use. ABDOMEN/GI: Abdomen soft, non-tender, bowel sounds present, no rebound, no guarding Gravid to 40 weeks size GENITOURINARY: External Genitalia: intact and normal in appearance Cervix: thick,high Dilatation: 1 Effacement: 20 Station: -3 Presentation: vertex Membranes: intact Uterine Contractions: q3-8 minutes FHT's: Category: 1 Baseline: 130 Reactive: yes Variability: moderate Decels: none EXTREMITIES: No cyanosis or edema. BACK: Nontender without obvious deformity. No CVA tenderness. NEUROLOGICAL: Awake and alert. Motor and sensory grossly within normal limits. Five out of 5 muscle strength in all muscle groups. Normal speech. Data Data Vital Signs Reviewed: Yes MDM Medical Record Reviewed: Yes Interpretation(s) 26 y/o at 40/4 weeks presents with contractions Category 1 FHT with recurring contractions Cervical exam: 3 -Bedside ultrasound performed, which shows fluid of 5.35, 6.37, 3.46, 1.23 -Called [facility]'s clinic and discussed with them, who states that she does not perform dating ultrasounds -Requested formal ultrasound for dating Narrative Course / MDM Pt decided to leave AMA Diagnosis Diagnosis: Primary Impression: 40 weeks gestation of Kana Warner MD Jun 24, 2017 16:25
--- NOTE | 2017-06-24 17:58 | PD ---
History of Present Illness History of Present Illness BPP report Indications: IUP at 40.4 per patient report (review of records indicates 32.5 per EDC in records), ? postterm heart tones in the 130s (135s) with moderate mcfp variability, good accelerations, and no decelerations. Bedside BPP performed with WILL 16.4 (5.35, 6.37, 3.46, 1.23), >30 seconds continuous breathing, >3 movements, and several episodes of flexion/extension noted. Cephalic presentation. Final dx: IUP at 40.4 vs 32.5, reassuring testing with BPP 02/25 F/U: dating/EFW US ordered but patient eloped without waiting for US Kimmie Mosley MD Jun 24, 2017 17:58
--- NOTE | 2017-06-24 17:59 | PD ---
History of Present Illness History of Present Illness Patient eloped/left AMA. The patient is a 26-year-old with IUP at 40.4 per her report. She insisted that she wanted to be induced for her post term . I discussed the patient that we needed to obtain her records before we could schedule her for an induction at 41 weeks. Several attempts were made to obtain the patient's records which were obtained from [facility] office. These were eventually received and showed an EDC with corresponding gestational age of 32.5 by the patient's LMP with only 1 visit at 16 weeks 2 [facility] office. The patient insisted that [facility] had performed a dating ultrasound. I spoke with the learning and development officer I [facility] office and she indicated the [facility] is does not perform dating ultrasounds however she will occasionally perform an ultrasound to confirm position or movement. The patient also reports that she had ultrasounds in the main ED that gave her a gestational age corresponding with 40 weeks and 4 days. A thorough review of the patient's electronic medical record revealed an ultrasound performed on 10/26/16 the showed only a gestational sac and a follow-up [id number] ultrasound in the ED on 11/25/16 that showed an early intrauterine , but no measurements for dating were obtained. We discussed with the patient that we needed to obtain an ultrasound to further evaluate the size of her . After this, the patient disconnect herself from the monitor and eloped, refusing to wait for ultrasound. We attempted to speak to the patient but she refused and left without further recommended testing. Kimmie Mosley MD Jun 24, 2017 17:59
== END | disposition home or self-care (01) ==
LOC: HOBED 15:36
DX: O47.1 False labor at or after 37 completed weeks of gestation (principal); Z3A.40 40 weeks gestation of pregnancy
CPT/HCPCS: 59025; 76815; 80307; 99284; G0481

== ENCOUNTER 2017-07-01 05:01 | Inpatient (IN) | payer MEDICAID ==
[2017-07-01] VITALS (9 sets, daily range): BP systolic 116–128; BP diastolic 69–94; PULSE 65–108; RESP 18; TEMP 97.9–98.2; O2SAT 98
[2017-07-01] MEDS ORDERED: LACTATED RINGER'S 1000 ML INJ 1,000 ML IV PRN (05:27)
[2017-07-01] MEDS ORDERED: LACTATED RINGER'S 1000 ML INJ 1,000 ML IV SCH (05:27)
[2017-07-01] MEDS ORDERED: LIDOCAINE HCL 1% 50 ML VIAL INFIL PRN (05:30)
[2017-07-01] MEDS ORDERED: PENICILLIN G POTASSIUM INJ 5,000,000 UNITS in SODIUM CHLORIDE 0.9% INJ 100 ML IV ONE (05:30)
[2017-07-01] MEDS ORDERED: SODIUM CHLORID 0.9% 500 ML INJ 500 ML IV PRN (05:30)
[2017-07-01] MEDS ORDERED: OXYTOCIN 30 UNITS-500ML PREMIX 500 ML IV ONE (05:30)
[2017-07-01] MEDS ORDERED: LIDOCAINE HCL 1% 50 ML VIAL I-DERMAL PRN (05:30)
[2017-07-01] MEDS ORDERED: CITRIC ACID-SODIUM CITRATE LIQ 30 ML UDC PO SCH (05:30)
[2017-07-01] MEDS ORDERED: MINERAL OIL 10 ML VIAL TOPICAL PRN (05:30)
--- NOTE | 2017-07-01 05:42 | HHI.HP ---
HPI Chief Complaint Contractions Date Seen: Jul 01, 2017 Time Seen: 05:33 Travel History International Travel<30 Days: No Contact w/Intl Traveler<30Days: No Known Affected Area: No History of Present Illness HPI 26-year-old black female at 41 weeks but has poor care only 3 visits to the midline to there is some question as to her gestational age however it's irrelevant now as she presents 8 cm dilated and active labor, heart rate tracing reactive she is librado regularly Weeks Gestation: 41 Para: 3 : 4 Last Menstrual Period: Jul 01, 2017 History Obstetric History Obstetric History 3 vaginal deliveries Social History Alcohol Use: No Tobacco Use: No Substance Abuse: No Allergies-Medications (Allergen,Severity, Reaction): Coded Allergies: No Known Allergies (Unverified Allergy, Unknown, 07/01/17) Review of Systems General / Constitutional: No: Fever, Weight Gain, Chills, Other Eyes: No: Diploplia, Blurred Vision, Visual changes, Pain, Photophobia HENT: No: Headaches, Vertigo, Lightheadedness Cardiovascular: No: Irregular Rhythm, Chest Pain or Discomfort, Palpitations, Tachycardia, Syncope, Varicosities, Edema, Cyanosis Respiratory: No: Cough, Short of Breath, Other Gastrointestinal: Abdominal Pain, No: Nausea, Vomiting, Diarrhea Genitourinary: No: Decreased Urinary Output, Oliguria Musculoskeletal: No: Limited ROM, Weakness, Cramping, Edema, Pain Skin: No Rash, No Itching, No Dryness, No Lumps, No Change in Pigmentation, No Change in Nails, No Alopecia, No Lesions Neurologic: No: Weakness, Dizziness, Syncope, Focal Abnormalities, Coordination Problem, Headache, Slurred Speech, Seizures Psychiatric: No: Depression, Suicidal Ideations, Homicidal Ideation Endocrine: No: Heat Intolerance, Cold Intolerance, Polydipsia, Polyuria, Other Physical Exam Narrative GENERAL: Well-nourished, well-developed patient. SKIN: Warm and dry. HEAD: Normocephalic and atraumatic. EYES: No scleral icterus. No injection or drainage. ENT: No nasal drainage noted. Mucous membranes pink. Airway patent. NECK: Supple, trachea midline. No JVD. CARDIOVASCULAR: Regular rate and rhythm without murmurs, gallops, or rubs. RESPIRATORY: Breath sounds equal bilaterally. No accessory muscle use. BREASTS: Bilateral exam showed no masses , no retractions, no nipple discharge. ABDOMEN/GI: Abdomen soft, non-tender, bowel sounds present, no rebound, no guarding Gravid to [-term] weeks size Fundal Height: [36-] GENITOURINARY: External Genitalia: intact and normal in appearance BUS glands: [-] Cervix: [-] Dilatation: [8-] Effacement: [100-] Station: [-2] Presentation: [vtx-] Membranes: [intact BBOW] Uterine Contractions: [reg-] FHT's: Category: [1-] Baseline: [-133] Reactive: [R-] Variability: [-mod] Decels: [none-] EXTREMITIES: No cyanosis or edema. BACK: Nontender without obvious deformity. No CVA tenderness. NEUROLOGICAL: Awake and alert. Motor and sensory grossly within normal limits. Five out of 5 muscle strength in all muscle groups. Normal speech. Caprini VTE Risk Assessment Caprini VTE Risk Assessment: No/Low Risk (score <= 1) Caprini Risk Assessment Model Point Value = 1 Point Value = 2 Point Value = 3 Point Value = 5 Age 41-60 Minor surgery BMI > 25 kg/m2 Swollen legs Varicose veins or History of unexplained or recurrent spontaneous Oral contraceptives or hormone replacement Sepsis (< 1 month) Serious lung disease, including pneumonia (< 1 month) Abnormal pulmonary function Acute myocardial infarction Congestive heart failure (< 1 month) History of inflammatory bowel disease Medical patient at bed rest Age 61-74 Arthroscopic surgery Major open surgery (> 45 min) Laparoscopic surgery (> 45 min) Malignancy Confined to bed (> 72 hours) Immobilizing plaster cast Central venous access Age >= 75 History of VTE Family history of VTE Factor V Leiden Prothrombin [id number] Lupus anticoagulant Anticardiolipin antibodies Elevated serum homocysteine Heparin-induced thrombocytopenia Other congenital or acquired thrombophilia Stroke (< 1 month) Elective arthroplasty Hip, pelvis, or leg fracture Acute spinal cord injury (< 1 month) Prophylaxis Regimen Total Risk Factor Score Risk Level Prophylaxis Regimen 0-1 Low Early ambulation 2 Moderate Order ONE of the following: *Sequential Compression Device (SCD) *Heparin 5000 units SQ BID 3-4 Higher Order ONE of the following medications: *Heparin 5000 units SQ TID *Enoxaparin/Lovenox 40 mg SQ daily (WT < 150 kg, CrCl > 30 mL/min) *Enoxaparin/Lovenox 30 mg SQ daily (WT < 150 kg, CrCl > 10-29 mL/min) *Enoxaparin/Lovenox 30 mg SQ BID (WT < 150 kg, CrCl > 30 mL/min) AND/OR *Sequential Compression Device (SCD) 5 or more Highest Order ONE of the following medications: *Heparin 5000 units SQ TID (Preferred with Epidurals) *Enoxaparin/Lovenox 40 mg SQ daily (WT < 150 kg, CrCl > 30 mL/min) *Enoxaparin/Lovenox 30 mg SQ daily (WT < 150 kg, CrCl > 10-29 mL/min) *Enoxaparin/Lovenox 30 mg SQ BID (WT < 150 kg, CrCl > 30 mL/min) AND *Sequential Compression Device (SCD) Data Data Orders Orders Ob (2e) Additional Admit Info (07/01/17 05:25) Admit To Inpatient (07/01/17 ) Vital Signs (Adult) .Per protocol (07/01/17 05:27) Heart (07/01/17 05:27) Amnioinfusion (07/01/17 05:27) Urinary Catheter Management .ONCE (07/01/17 05:27) Diet Npo (07/01/17 Breakfast) Lactated Ringer's 1000 Ml Inj (Lr 1000 M (07/01/17 05:27) Lactated Ringer's 1000 Ml Inj (Lr 1000 M (07/01/17 05:27) Sodium Chlorid 0.9% 500 Ml Inj (Ns 500 M (07/01/17 05:30) Sodium Chlor 0.9% 1000 Ml Inj (Ns 1000 M (07/01/17 05:47) Lidocaine 1% Inj (50 Ml) (Xylocaine 1% I (07/01/17 05:30) Citric Acid-Sodium Citrate Liq (Bicitra (07/01/17 05:30) Fentanyl Inj (Fentanyl Inj) (07/01/17 05:30) Fentanyl Inj (Fentanyl Inj) (07/01/17 05:30) Penicillin G Potassium Inj (Pfizerpen-G (07/01/17 05:30) Penicillin G Potassium Inj (Pfizerpen-G (07/01/17 09:30) Complete Blood Count With Diff (07/01/17 05:27) Hold Clot (07/01/17 05:27) Abo/Rh Blood Type (07/01/17 05:27) Urinalysis - C+S If Indicated (07/01/17 05:27) Drug Screen, Random Urine (07/01/17 05:27) Resp Oxygen Non Rebreathe Mask (07/01/17 ) ^ Epidural / Intrathecal Infus (07/01/17 05:27) Oxytocin 30 Units-500ml Premix (Pitocin (07/01/17 05:30) Lidocaine 1% Inj (50 Ml) (Xylocaine 1% I (07/01/17 05:30) Light Mineral Oil (Muri-Lube Oil) (07/01/17 05:30) Assessment/Plan Assessment and Plan 26-year-old black female to term proximal 41 weeks with uncertain gestational age followed by [facility] lamp wirer. Presents in precipitous labor 8 cm dilated on admission. Impression-active labor Plan-admit manage labor anticipate vaginal delivery Jt Núñez II, MD Jul 01, 2017 05:42
[2017-07-01] MEDS ORDERED: LIDOCAINE HCL 1% 20 ML VIAL ONE (05:46)
[2017-07-01] MEDS ORDERED: SODIUM CHLOR 0.9% 1000 ML INJ 1,000 ML IV PRN (05:47)
[2017-07-01 05:50] LABS: AUTOMATED NEUTROPHIL # 2.6 TH/MM3 (1.8-7.7); BASOPHIL % 0.5 % (0.0-2.0); EOSINOPHIL % 0.5 % (0.0-4.0); HEMATOCRIT 28.3 % (35.0-46.0); HEMOGLOBIN 8.5 GM/DL (11.6-15.3); LYMPH % 43.2 % (9.0-44.0); LYMPHOCYTE # 2.4 TH/MM3 (1.0-4.8); MEAN CELL VOLUME 61.1 FL (80.0-100.0); MEAN CORPUSCULAR HEMOGLOBIN 18.3 PG (27.0-34.0); MONOCYTE # 0.4 TH/MM3 (0-0.9); NEUT % 47.8 % (16.0-70.0); PLATELET COUNT 190 TH/MM3 (150-450); RED BLOOD COUNT 4.64 MIL/MM3 (4.00-5.30); RED CELL DISTRIBUTION WIDTH 20.3 % (11.6-17.2); WHITE BLOOD COUNT 5.5 TH/MM3 (4.0-11.0)
[2017-07-01 06:15] LABS: AMORPHOUS SEDIMENT, URINE RARE; BACTERIA, URINE OCC /hpf; BILIRUBIN, URINE NEG (NEG); BLOOD, URINE TRACE (NEG); GLUCOSE,URINE NEG (NEG); KETONE, URINE NEG (NEG); MUCUS URINE FEW /lpf (OCC); NITRITE,URINE NEG (NEG); SQUAMOUS EPITHELIAL CELL URINE 16 /hpf (0-5); URINE COLOR YELLOW (YELLW/STRAW); URINE LEUKOCYTE ESTERASE LARGE (NEG); WHITE BLOOD CELL CLUMPS RARE
[2017-07-01] MEDS ORDERED: DOCUSATE SODIUM 50 MG/SENNA 8.6 MG TAB PO PRN (06:45)
[2017-07-01] MEDS ORDERED: ACETAMINOPHEN 325 MG TAB PO PRN (06:45)
[2017-07-01] MEDS ORDERED: WITCH HAZEL 50%/GLYCERIN 12.5% 40 PAD JAR TOPICAL PRN (06:45)
[2017-07-01] MEDS ORDERED: ALUMINUM/MAGNESIUM/SIMETH 30 ML CUP PO PRN (06:45)
[2017-07-01] MEDS ORDERED: SODIUM CHLORIDE 0.9% FLUSH 10 ML FLUSH IV FLUSH PRN (06:45)
[2017-07-01] MEDS ORDERED: ZOLPIDEM TARTRATE 5 MG TAB PO PRN (06:45)
[2017-07-01] MEDS ORDERED: ONDANSETRON ODT 4 MG TAB PO PRN (06:45)
[2017-07-01] MEDS ORDERED: BENZOCAINE 20% TOPICAL SPRAY 60 ML CAN TOPICAL PRN (06:45)
[2017-07-01] MEDS ORDERED: OXYTOCIN 30 UNITS-500ML PREMIX 500 ML IV SCH (06:45)
--- NOTE | 2017-07-01 06:45 | PD.OB.DELI ---
Weeks gestation: 41 Anesthesia: None Episiotomy: None Vaginal Delivery: Normal Presentation: Occiput anterior Nuchal Cord: x1 Delayed cord clamping (45 sec): Yes Infant: Female Delivery date: Jul 01, 2017 Delivery time: 06:31 One Minute : 8 Five Minute : 9 Weight: delayed for skin to skin Placenta: Spontaneous delivery, Intact, 3 vessel cord Laceration: 1 deg (vaginal skid villa bilaterally) Estimated blood loss: 50cc Additional Information Supervised by Dr. Núñez (Hilary Phan MD, R3) Weeks gestation: 41 Gest age assessed date: Jun 30, 2017 Gest age assessed time: 08:00 Pt started active labor?: Yes Active labor start date: Jun 30, 2017 Active labor start time: 04:00 Medical induction of labor?: No Delivery date: Jul 02, 2017 Delivery time: 06:31 One Minute : 8 Five Minute : 9 Weight: 2710 gm Placenta: Spontaneous delivery Laceration: No lacerations Estimated blood loss: 200 cc (Jt Núñez II, MD) Hilary Phan MD, R3 Jul 01, 2017 06:45 Jt Núñez II, MD Jul 02, 2017 13:12
[2017-07-01] MEDS ORDERED: TRICTAB PO (06:54)
[2017-07-01] MEDS: IBUPROFEN 800 MG TAB PO PRN (09:10)
[2017-07-01] MEDS ORDERED: PENICILLIN G POTASSIUM INJ 2,500,000 UNITS in SODIUM CHLORIDE 0.9% INJ 100 ML IV SCH (09:30)
[2017-07-01] MEDS ORDERED: DIPHTH/TETANUS/ACEL PERTUSSIS (BOOSTER) 0.5 ML VIAL/PFS IM ONE (16:00)
[2017-07-01] MEDS ORDERED: MEASLES, MUMPS, RUBELLA VACCINE 0.5 ML VIAL SQ ONE (16:00)
[2017-07-01] MEDS: SODIUM CHLORIDE 0.9% FLUSH 10 ML FLUSH IV FLUSH SCH (21:55)
[2017-07-02] MEDS: IBUPROFEN 800 MG TAB PO PRN ×3 (04:53→23:37)
[2017-07-02] MEDS: oxyCODONE/ACETAMINOPHEN 5 MG/325 MG TAB PO PRN ×3 (04:53→23:37)
[2017-07-02 08:00] VITALS: BP 126/68; PULSE 80; RESP 14; TEMP 98.5
[2017-07-02] MEDS ORDERED: PERI PO (08:29)
[2017-07-02] MEDS ORDERED: IBUP1TAB7 PO (08:29)
--- NOTE | 2017-07-02 09:38 | HHI.DCPOC ---
Discharge Care Plan Diagnosis: (1) care following vaginal delivery Report Symptoms to Your Doctor -Temperature above 100.5 degrees -Redness, of incision or excessive or foul smelling drainage -Unusual pain or calf pain -Increased vaginal bleeding -Painful or difficulty urinating -Feelings of extreme sadness or anxiety after 2 weeks Goals to Promote Your Health * To prevent worsening of your condition and complications * To maintain your health at the optimal level Directions to Meet Your Goals Take your medications as prescribed Follow your dietary instruction Follow activity as directed Ensure plenty of rest for recovery Drink fluids for hydration Keep your appointments as scheduled Take your immunizations and boosters as scheduled If your symptoms worsen call your PCP, if no PCP go to Urgent Care Center or Emergency Room Smoking is Dangerous to Your Health. Avoid second hand smoke Call the 24-hour crisis hotline for domestic abuse at Kana Warner MD Jul 02, 2017 09:38
--- NOTE | 2017-07-02 09:38 | HHI.OB ---
Subjective Post Day: 1 Remarks day #1. AFVSS overnight. Pain minimal. Decreased lochia. Denies dysuria. No breast tenderness. She is feeding the baby via bottle. Appetite good. No nausea or vomiting. Endorses flatus. No bowel movement. Ambulating well. Denies calf pain, shortness of breath, or cough. Otherwise, she is doing well this morning and has no other complaints. Objective Vitals/I&O Vital Signs Date Time Temp Pulse Resp B/P (MAP) Pulse Ox O2 Delivery O2 Flow Rate FiO2 07/01/17 20:00 67 18 116/69 (85) 07/01/17 20:00 98.2 98 Objective Remarks GENERAL: Well-nourished, well-developed patient. CARDIOVASCULAR: Regular rate and rhythm without murmurs, gallops, or rubs. RESPIRATORY: Breath sounds equal bilaterally. No accessory muscle use. ABDOMEN/GI: Abdomen soft, non-tender. Fundus: Firm, non-tender at umbilicus. GENITOURINARY: Light to moderate bleeding. EXTREMITIES: No cyanosis or edema, non-tender, without signs of DVT. Medications and IVs Current Medications Medications (Trade) Dose Ordered Sig/Waqar Route Start Time Stop Time Status Last Admin (NS Flush) 2 ml BID IV FLUSH 07/01/17 09:00 (NS Flush) 2 ml UNSCH PRN IV FLUSH 07/01/17 06:45 (Tylenol) 650 mg Q4H PRN PO 07/01/17 06:45 (Motrin) 800 mg Q8H PRN PO 07/01/17 06:45 07/02/17 04:53 (Percocet 5-325 Mg) 1 tab Q4H PRN PO 07/01/17 06:45 07/02/17 04:53 (Percocet 5-325 Mg) 2 tab Q4H PRN PO 07/01/17 06:45 (Americaine 20% Top Spr) 1 spray Q4H PRN TOPICAL 07/01/17 06:45 (Tucks Pads) 1 applic QID PRN TOPICAL 07/01/17 06:45 (Taylor-Colace) 2 tab Q12H PRN PO 07/01/17 06:45 (Ambien) 5 mg HS PRN PO 07/01/17 06:45 (Mag-Al Plus Susp Liq) 15 ml Q8H PRN PO 07/01/17 06:45 (Zofran Odt) 4 mg Q6H PRN PO 07/01/17 06:45 07/01/17 10:11 (Flu (Quadrivalent) Vaccine Inj) 0.5 ml ONCE ONCE IM 07/02/17 10:00 07/02/17 10:01 Assessment/Plan Assessment and Plan 26y/o who is PPD#1 s/p . -Continue routine care. -Percocet and Motrin PRN pain. -Encouraged OOB. Advised pelvic rest for 6 wks. -Will need a f/u appt. within 6 wks. -Re: ctrl, she would like oral contraceptives -D/c today aKna Warner MD Jul 02, 2017 09:37
[2017-07-02] MEDS ORDERED: INFLUENZA VIRUS VACCINE (QUADRIVALENT) 0.5 ML SYR IM ONE (10:00)
[2017-07-02 20:30] VITALS: BP 104/63; PULSE 94; RESP 16; TEMP 98.2
[2017-07-02] MEDS: SODIUM CHLORIDE 0.9% FLUSH 10 ML FLUSH IV FLUSH SCH (21:35)
[2017-07-03 08:00] VITALS: BP 105/73; PULSE 72; RESP 16; TEMP 98.3
--- NOTE | 2017-07-03 09:48 | HHI.OB ---
Subjective Post Day: 2 Remarks day #2. AFVSS overnight. Pain minimal. Decreased lochia. Denies dysuria. No breast tenderness. She is feeding the baby via bottle. Appetite good. No nausea or vomiting. Endorses flatus. No bowel movement. Ambulating well. Denies calf pain, shortness of breath, or cough. Otherwise, she is doing well this morning and has no other complaints. Objective Vitals/I&O Vital Signs Date Time Temp Pulse Resp B/P (MAP) Pulse Ox O2 Delivery O2 Flow Rate FiO2 07/02/17 20:30 94 16 104/63 (77) 07/02/17 20:30 98.2 Objective Remarks GENERAL: Well-nourished, well-developed patient. CARDIOVASCULAR: Regular rate and rhythm without murmurs, gallops, or rubs. RESPIRATORY: Breath sounds equal bilaterally. No accessory muscle use. ABDOMEN/GI: Abdomen soft, non-tender. Fundus: Firm, non-tender at umbilicus. GENITOURINARY: Light to moderate bleeding. EXTREMITIES: No cyanosis or edema, non-tender, without signs of DVT. Medications and IVs Current Medications Medications (Trade) Dose Ordered Sig/Waqar Route Start Time Stop Time Status Last Admin (NS Flush) 2 ml BID IV FLUSH 07/01/17 09:00 (NS Flush) 2 ml UNSCH PRN IV FLUSH 07/01/17 06:45 (Tylenol) 650 mg Q4H PRN PO 07/01/17 06:45 (Motrin) 800 mg Q8H PRN PO 07/01/17 06:45 07/02/17 23:37 (Percocet 5-325 Mg) 1 tab Q4H PRN PO 07/01/17 06:45 07/02/17 04:53 (Percocet 5-325 Mg) 2 tab Q4H PRN PO 07/01/17 06:45 07/02/17 23:37 (Americaine 20% Top Spr) 1 spray Q4H PRN TOPICAL 07/01/17 06:45 (Tucks Pads) 1 applic QID PRN TOPICAL 07/01/17 06:45 (Taylor-Colace) 2 tab Q12H PRN PO 07/01/17 06:45 (Ambien) 5 mg HS PRN PO 07/01/17 06:45 (Mag-Al Plus Susp Liq) 15 ml Q8H PRN PO 07/01/17 06:45 (Zofran Odt) 4 mg Q6H PRN PO 07/01/17 06:45 07/01/17 10:11 Assessment/Plan Assessment and Plan 26y/o who is PPD#2 s/p . -Continue routine care. -Percocet and Motrin PRN pain. -Encouraged OOB. Advised pelvic rest for 6 wks. -Will need a f/u appt. within 6 wks. -Re: ctrl, she would like oral contraceptives -D/c today Kana Warner MD Jul 03, 2017 09:48
[2017-07-03] MEDS: IBUPROFEN 800 MG TAB PO PRN (10:40)
[2017-07-03] MEDS: oxyCODONE/ACETAMINOPHEN 5 MG/325 MG TAB PO PRN (10:40)
== END 2017-07-03 12:35 | disposition home or self-care (01) | DRG 775 ==
LOC: HOBED 05:01 → H2EA 05:25 → H1EA 08:17
PROVIDERS: ADMIT Obstetrics & Gynecology Maternal & Fetal Medicine; ATTEND Obstetrics & Gynecology Maternal & Fetal Medicine
PROC: 10E0XZZ Delivery of Products of Conception, External Approach (ICD-10-PCS; principal; 2017-07-01)
DX: O48.0 Post-term pregnancy (principal); O62.3 Precipitate labor; O69.81X0 Labor and delivery complicated by cord around neck, without compression, not applicable or unspecified; Z3A.41 41 weeks gestation of pregnancy; Z37.0 Single live birth
CPT/HCPCS: 80307; 81001; 84112; 85025; 87086